=== PATIENT | female | born 1965 | race Caucasian/White ===

== ENCOUNTER 2017-03-19 12:39 | Emergency (ER) | payer BC ==
[2017-03-19] MEDS ORDERED: ASPIRIN TABLET 325 MG TAB ONE (12:43)
[2017-03-19] MEDS ORDERED: NITROGLYCERIN 0.4 MG 25 EA TAB SL ONE ×2 (12:43→13:48)
--- NOTE | 2017-03-19 12:43 | ED.PDOC ---
History of Present Illness - General Chief Complaint: Chest Pain/UT Stated Complaint: chest pain Time Seen by Provider: 03/19/17 12:42 Source: patient - History of Present Illness Initial Comments: Anupama Sung 51 y/o female stated that while at work had sudden onset of dull substernal ache radiating to her back felt hot and sweaty and SOB felt also nauseated.Symptoms started at about 1130 h today Timing/Duration: 1-3 hours Severity/Quality: dull Location: substernal Chest Pain Radiation: back Activities at Onset: other - at work Prior Chest Pain/Cardiac Workup: no prior chest pain Improving Factors: nothing Worsening Factors: nothing Nitro Today/Relief: no nitro taken today Aspirin Treatment Today: no aspirin today Associated Symptoms: nausea/vomiting, shortness of breath Allergies/Adverse Reactions: Allergies NSAIDs Allergy (Verified 03/19/17 12:47) Home Medications: Ambulatory Orders NK [NK] 03/19/17 Review of Systems - Review of Systems Constitutional: States: no symptoms reported EENTM: States: no symptoms reported Respiratory: States: no symptoms reported Cardiology: States: see HPI Gastrointestinal/Abdominal: States: no symptoms reported Genitourinary: States: no symptoms reported Musculoskeletal: States: no symptoms reported Past Medical History (General) - Patient Medical History Hx Seizures: No Hx Asthma: No Hx of COPD: No Hx Cardiac Disorders: No Hx Congestive Heart Failure: No Hx Hypertension: No Surgical History: other - ulnar nerve transposition - Social History Hx Tobacco Use: No Hx Chewing Tobacco Use: No Hx Alcohol Use: No Hx Substance Use: No Hx Physical Abuse: No Hx Emotional Abuse: No Hx Suspected Abuse: No - Activities of Daily Living Patient Lives Alone: No - family - Female History Patient is a Female of Child Bearing Age (10 -59 yrs old): Yes Hx Last Menstrual Period: 03/04/17 Patient : No Family Medical History - Family History Mother Living Status: Still Living Hx Family Hypertension: Yes - mom Hx Family Cancer: Yes - DAD Physical Exam - Physical Exam General Appearance: Alert, Anxious, No apparent distress Eyes, Ears, Nose, Throat Exam: PERRL/EOMI, normal ENT inspection, TMs normal Neck: non-tender, full range of motion, supple Respiratory: lungs clear, normal breath sounds, no respiratory distress Cardiovascular/Chest: normal peripheral pulses, regular rate, rhythm, no edema, no murmur Peripheral Pulses: radial,right: 1+, radial,left: 1+ Gastrointestinal/Abdominal: normal bowel sounds, non tender, soft Extremity: normal range of motion, non-tender, no pedal edema, no calf tenderness Neurologic: no motor/sensory deficits, alert, normal mood/affect, oriented x 3 Skin Exam: normal color, warm/dry Lymphatic: no adenopathy Progress - Progress Progress: 03/19/17 13:53 Vital Signs - 8 hr 03/19/17 03/19/17 03/19/17 12:47 12:55 13:09 Temperature 97.6 F Pulse Rate [ 89 84 85 Left Radial] Respiratory 18 18 18 Rate Blood Pressure 179/101 182/86 131/81 [Left Arm] O2 Sat by Pulse 100 97 97 Oximetry 03/19/17 13:39 Temperature Pulse Rate [ 82 Left Radial] Respiratory 18 Rate Blood Pressure 148/90 [Left Arm] O2 Sat by Pulse 98 Oximetry - Results/Orders Results/Orders: Laboratory Tests 03/19/17 03/19/17 03/19/17 12:55 12:55 13:13 WBC 10.4 RBC 4.73 Hgb 14.3 Hct 42.0 MCV 88.9 MCH 30.1 MCHC 33.9 RDW 13.2 Plt Count 265 MPV 9.6 Absolute Neuts (auto) 5.40 Absolute Lymphs (auto) 3.80 H Absolute Monos (auto) 0.70 Absolute Eos (auto) 0.30 Absolute Basos (auto) 0.20 H Neutrophils % 52.2 Lymphocytes % 36.4 Monocytes % 6.7 Eosinophils % 2.5 Basophils % 2.2 H PT 11.0 INR 0.970 PTT (SP) 35.1 D-Dimer, Quantitative < 230 Sodium 135 Potassium 3.7 Chloride 103 Carbon Dioxide 24 Anion Gap 11.7 L BUN 15 Creatinine 0.63 BUN/Creatinine Ratio 23.8 H Random Glucose 96 Serum Osmolality 270.8 L Calcium 9.5 Magnesium 2.2 Total Bilirubin < 0.2 L Direct Bilirubin < 0.1 Indirect Bilirubin 0.1 L AST 34 ALT 28 Alkaline Phosphatase 86 Creatine Kinase 46 CK-MB (CK-2) 1.0 CK-MB (CK-2) % Not Reportable Troponin I < 0.02 B-Natriuretic Peptide < 5.0 Serum Total Protein 8.2 Albumin 4.2 Lipase 33 Urine Color Urine Appearance Urine pH Ur Specific [place] Urine Protein Urine Glucose (UA) Urine Ketones Urine Blood Urine Nitrite Urine Bilirubin Urine Urobilinogen Ur Leukocyte Esterase Urine RBC Urine WBC Ur Epithelial Cells Urine Bacteria Urine HCG, Qual 03/19/17 03/19/17 14:50 14:50 WBC RBC Hgb Hct MCV MCH MCHC RDW Plt Count MPV Absolute Neuts (auto) Absolute Lymphs (auto) Absolute Monos (auto) Absolute Eos (auto) Absolute Basos (auto) Neutrophils % Lymphocytes % Monocytes % Eosinophils % Basophils % PT INR PTT (SP) D-Dimer, Quantitative Sodium Potassium Chloride Carbon Dioxide Anion Gap BUN Creatinine BUN/Creatinine Ratio Random Glucose Serum Osmolality Calcium Magnesium Total Bilirubin Direct Bilirubin Indirect Bilirubin AST ALT Alkaline Phosphatase Creatine Kinase CK-MB (CK-2) CK-MB (CK-2) % Troponin I B-Natriuretic Peptide Serum Total Protein Albumin Lipase Urine Color Yellow Urine Appearance Clear Urine pH 6.0 Ur Specific [place] 1.015 Urine Protein Negative Urine Glucose (UA) Negative Urine Ketones Negative Urine Blood Negative Urine Nitrite Negative Urine Bilirubin Negative Urine Urobilinogen 0.2 Ur Leukocyte Esterase Negative Urine RBC 0 Urine WBC 0 Ur Epithelial Cells 0 Urine Bacteria 0 Urine HCG, Qual Negative Laboratory Tests 03/19/17 03/19/17 03/19/17 12:55 12:55 13:13 WBC 10.4 RBC 4.73 Hgb 14.3 Hct 42.0 MCV 88.9 MCH 30.1 MCHC 33.9 RDW 13.2 Plt Count 265 MPV 9.6 Absolute Neuts (auto) 5.40 Absolute Lymphs (auto) 3.80 H Absolute Monos (auto) 0.70 Absolute Eos (auto) 0.30 Absolute Basos (auto) 0.20 H Neutrophils % 52.2 Lymphocytes % 36.4 Monocytes % 6.7 Eosinophils % 2.5 Basophils % 2.2 H PT 11.0 INR 0.970 PTT (SP) 35.1 D-Dimer, Quantitative < 230 Sodium 135 Potassium 3.7 Chloride 103 Carbon Dioxide 24 Anion Gap 11.7 L BUN 15 Creatinine 0.63 BUN/Creatinine Ratio 23.8 H Random Glucose 96 Serum Osmolality 270.8 L Calcium 9.5 Magnesium 2.2 Total Bilirubin < 0.2 L Direct Bilirubin < 0.1 Indirect Bilirubin 0.1 L AST 34 ALT 28 Alkaline Phosphatase 86 Creatine Kinase 46 CK-MB (CK-2) 1.0 CK-MB (CK-2) % Not Reportable Troponin I < 0.02 B-Natriuretic Peptide < 5.0 Serum Total Protein 8.2 Albumin 4.2 Lipase 33 Urine Color Urine Appearance Urine pH Ur Specific [place] Urine Protein Urine Glucose (UA) Urine Ketones Urine Blood Urine Nitrite Urine Bilirubin Urine Urobilinogen Ur Leukocyte Esterase Urine RBC Urine WBC Ur Epithelial Cells Urine Bacteria Urine HCG, Qual Urine Opiates Screen Urine Barbiturates Ur Phencyclidine Scrn U Amphetamin/Meth Scrn U Benzodiazepines Scrn U Cocaine Metab Screen U Cannabinoids Screen 03/19/17 03/19/17 03/19/17 14:50 14:50 14:50 WBC RBC Hgb Hct MCV MCH MCHC RDW Plt Count MPV Absolute Neuts (auto) Absolute Lymphs (auto) Absolute Monos (auto) Absolute Eos (auto) Absolute Basos (auto) Neutrophils % Lymphocytes % Monocytes % Eosinophils % Basophils % PT INR PTT (SP) D-Dimer, Quantitative Sodium Potassium Chloride Carbon Dioxide Anion Gap BUN Creatinine BUN/Creatinine Ratio Random Glucose Serum Osmolality Calcium Magnesium Total Bilirubin Direct Bilirubin Indirect Bilirubin AST ALT Alkaline Phosphatase Creatine Kinase CK-MB (CK-2) CK-MB (CK-2) % Troponin I B-Natriuretic Peptide Serum Total Protein Albumin Lipase Urine Color Yellow Urine Appearance Clear Urine pH 6.0 Ur Specific [place] 1.015 Urine Protein Negative Urine Glucose (UA) Negative Urine Ketones Negative Urine Blood Negative Urine Nitrite Negative Urine Bilirubin Negative Urine Urobilinogen 0.2 Ur Leukocyte Esterase Negative Urine RBC 0 Urine WBC 0 Ur Epithelial Cells 0 Urine Bacteria 0 Urine HCG, Qual Negative Urine Opiates Screen Negative Urine Barbiturates Negative Ur Phencyclidine Scrn Negative U Amphetamin/Meth Scrn Negative U Benzodiazepines Scrn Negative U Cocaine Metab Screen Negative U Cannabinoids Screen Negative - EKG/XRAY/CT EKG: Sinus, no ST T wave changes Comments: hear rate-84 XRAY: chest - no acute abnormality - Additional EKG/XRAY/Consults EKG #2: Sinus Comments: HR-74 Departure - Departure Clinical Impression: Chest pain Qualifiers: Chest pain type: unspecified Qualified Code(s): R07.9 - Chest pain, unspecified Time of Disposition: 16:01 Disposition: Discharge to Home or Self Care Condition: Good Instructions: DI for Chest Pain Referrals: TATI,CHRIS L IV, SOAP CHIPPER [Primary Care Provider] - 1-2 Weeks Home Medications: Ambulatory Orders NK [NK] 03/19/17 Additional Instructions: RETURN TO ER NEEDED;Follow up with your primary md call for appointment today
[2017-03-19] MEDS ORDERED: ASPIRIN (CHEWABLE) 81 MG TAB PO ONE (12:44)
--- NOTE | 2017-03-19 13:06 | RAD ---
EXAM DESCRIPTION: Chest,1 View CLINICAL HISTORY: 51 years Female, pain COMPARISON: None. IMPRESSION: Heart size and pulmonary vascularity are within normal limits. There is no airspace consolidation, pleural effusion, or pneumothorax. No acute osseous abnormality. Electronically signed by: Marino Flynn MD 03/19/2017 1:05 PM CDT
[2017-03-19 13:07] VITALS: TEMP 97.6
[2017-03-19] MEDS ORDERED: SUCRALFATE 1 GM/10 ML 1 GM UD PO ONE (13:13)
[2017-03-19] MEDS ORDERED: LIDOCAINE VIS-MYLANTA 30 ML UD PO ONE (13:13)
[2017-03-19] MEDS ORDERED: CLOPIDOGREL 75 MG TAB PO ONE (13:13)
[2017-03-19] MEDS ORDERED: ONDANSETRON INJ 4 MG/2 ML VIAL IV ONE (13:15)
[2017-03-19] MEDS ORDERED: SODIUM CHLORIDE 0.9% 1000ML 1,000 ML IVS ONE (13:16)
[2017-03-19] MEDS ORDERED: ACETAMINOPHEN 500 MG TAB PO ONE ×2 (13:52→14:18)
[2017-03-19 17:15] VITALS: BP 124/72; O2SAT 100
== END 2017-03-19 16:20 | disposition home or self-care (01) ==
LOC: ER 12:39
DX: R07.9 Chest pain, unspecified (principal); Z88.6 Allergy status to analgesic agent
CPT/HCPCS: 36415; 71010; 80048; 80076; 80307; 81001; 81025; 82550; 82553; 83690; 83880; 84484; 85025; 85379; 85610; 85730; 93005; J2405; J7030

== ENCOUNTER 2017-03-20 14:47 | Emergency (ER) | payer BC ==
[2017-03-20] MEDS ORDERED: HYDROmorphone HCL INJ 2 MG/ML VIAL IV ONE ×2 (15:32→17:50)
[2017-03-20] MEDS ORDERED: ONDANSETRON ODT 8 MG TAB SL ONE (15:32)
--- NOTE | 2017-03-20 17:36 | CT ---
EXAM DESCRIPTION: Abdomen/Pelvis w/Contrast CLINICAL HISTORY: 51 years Female ruq pain severe 24 hours, n/v COMPARISON: None. TECHNIQUE: Contiguous axial images obtained through the abdomen and pelvis following IV contrast. Reformatted images obtained. This exam was performed according to our department optimization program which includes automated exposure control, adjustment of the mA and/or kv according to patient size and/or use of iterative reconstruction technique. FINDINGS: The liver appears unremarkable. The spleen and pancreas appear unremarkable. No adrenal masses. The kidneys appear unremarkable. No hydronephrosis. The gallbladder is present. There appears to be mild stranding and indistinctness of the wall with some fluid along the gallbladder fossa. Findings may reflect cholecystitis. There also appears to be mild extrahepatic biliary ductal dilatation with the common duct measuring 7 to 8 mm in the val. Recommend correlation with ultrasound. No aneurysmal dilatation of the aorta. No bowel obstruction. The appendix is unremarkable. Small amount of free fluid is present in the pelvis. There is a partially collapsed right ovarian cyst measuring 2.3 cm. This is almost certainly benign in a patient of this age and does not require follow-up. IMPRESSION: Findings concerning for cholecystitis. Recommend correlation with ultrasound Mild biliary ductal dilatation without obvious obstructing lesion Small amount of fluid in the pelvis Additional changes as above Electronically signed by: Destiney Pinto 03/20/2017 5:35 PM CDT
[2017-03-20] MEDS ORDERED: cefOXitin SODIUM 2 GM in SODIUM CHL 0.9% 50ML MIN-BAG+ 50 ML IVPB ONE (18:09)
[2017-03-20] MEDS ORDERED: SODIUM CHL 0.9% 50ML MIN-BAG+ 50 ML IVPB ONE (18:13)
[2017-03-20] MEDS ORDERED: cefOXitin SODIUM 2 GM INJ IVPB ONE (18:13)
[2017-03-20] MEDS ORDERED: PROMETHAZINE HCL INJ 25 MG in SODIUM CHLORIDE 0.9% 50ML 50 ML IVPB ONE (18:14)
--- NOTE | 2017-03-20 18:20 | ED.PDOC ---
History of Present Illness - General Chief Complaint: Abdominal Pain Stated Complaint: abdominal pain Time Seen by Provider: 03/20/17 15:31 Source: patient, family Exam Limitations: no limitations - History of Present Illness Initial Comments: the patient is a 51-year-old female presenting to the emergency room secondary toprogression of abdominal pain. She was actually seen here in the emergency room last night with more epigastric substernal pain. She received the appropriate workup for that and was released with medications to target her stomach. Pain has progressed today and moved to the right upper quadrant with more associated nausea and vomiting. She returned secondary to progression of pain. Liver function tests were completely normal yesterday. Timing/Duration: 24 hours Severity: severe Improving Factors: immobilization Worsening Factors: eating, movement Associated Symptoms: diaphoresis, malaise, nausea/vomiting Allergies/Adverse Reactions: Allergies NSAIDs Allergy (Verified 03/19/17 12:47) Home Medications: Ambulatory Orders NK [NK] 03/19/17 Review of Systems - Review of Systems Constitutional: States: malaise EENTM: States: no symptoms reported Respiratory: States: no symptoms reported Cardiology: States: no symptoms reported Gastrointestinal/Abdominal: States: abdominal pain, nausea, vomiting Genitourinary: States: no symptoms reported Musculoskeletal: States: no symptoms reported, back pain - on the right Skin: States: no symptoms reported Neurological: States: no symptoms reported Endocrine: States: no symptoms reported Hematologic/Lymphatic: States: no symptoms reported Past Medical History (General) - Patient Medical History Hx Seizures: No Hx Stroke: No Hx Asthma: No Hx of COPD: No Hx Cardiac Disorders: No Hx Congestive Heart Failure: No Hx Hypertension: No Hx Diabetes: No Hx MRSA: No Surgical History: other - Vaccination History Hx Influenza Vaccination: Yes - 2016 Hx Pneumococcal Vaccination: No - Social History Hx Tobacco Use: No Hx Chewing Tobacco Use: No Hx Alcohol Use: No Hx Substance Use: No Hx Physical Abuse: No Hx Emotional Abuse: No Hx Suspected Abuse: No - Female History Hx Last Menstrual Period: 03/04/17 Patient : No Family Medical History - Family History Mother Living Status: Still Living Hx Family Hypertension: Yes - mom Hx Family Cancer: Yes - DAD Physical Exam - Physical Exam General Appearance: Alert, Obvious distress Eye Exam: bilateral normal Ears, Nose, Throat: hearing grossly normal, normal ENT inspection, normal pharynx Neck: full range of motion, supple Respiratory: chest non-tender, lungs clear, normal breath sounds, no respiratory distress, no accessory muscle use Cardiovascular/Chest: normal peripheral pulses, regular rate, rhythm, no edema Peripheral Pulses: radial,right: 2+, radial,left: 2+, dorsalis pedis,right: 2+, dorsalis pedis,left: 2+ Gastrointestinal/Abdominal: soft, other - right upper quadrant tenderness to palpation with guarding. There is also some rebound in that area. Rectal Exam: deferred Back Exam: normal inspection, CVA tenderness (R) Extremity: normal range of motion, non-tender, normal inspection, no pedal edema , normal capillary refill Neurologic: account coordinator II-XII nml as tested, alert, normal mood/affect, oriented x 3 Skin Exam: normal color Comments: Vital Signs - 24 hr 03/20/17 03/20/17 03/20/17 14:52 16:06 16:19 Temperature 98.7 F Pulse Rate [RAC 83 74 75 ] Respiratory 20 18 16 Rate Blood Pressure 152/87 154/80 [LEFT BRACHIAL] O2 Sat by Pulse 99 98 100 Oximetry 03/20/17 17:47 Temperature Pulse Rate [RAC 81 ] Respiratory 20 Rate Blood Pressure 171/120 [LEFT BRACHIAL] O2 Sat by Pulse 97 Oximetry Progress - Progress Progress: 03/20/17 18:21 the patient is a 51-year-old female presenting to the emergency room secondary to progression of abdominal pain. She appears to have acute cholecystitis. There is a question of whether she has a common bile duct stone as the cause. The patient will be sent to [facility] where she can have the ultrasound done as this is not available here [facility]. The patient is receiving a dose of a cephalosporin prior to transfer. She has also received a dose of pain medication and nausea medication. The patient will be going by private vehicle as she is stable for that at this time, as there is a significant delay for ambulance transfer currently due to lack of availability. Her IV will be wrapped up for use at the receiving facility if they agree to its use upon arrival. - Results/Orders Results/Orders: Laboratory Tests 03/20/17 03/20/17 03/20/17 15:12 15:50 15:50 WBC 9.9 RBC 4.55 Hgb 13.7 Hct 40.8 MCV 89.8 MCH 30.2 MCHC 33.6 RDW 13.4 Plt Count 266 MPV 9.9 Absolute Neuts (auto) 7.10 H Absolute Lymphs (auto) 1.80 Absolute Monos (auto) 0.70 Absolute Eos (auto) 0.20 Absolute Basos (auto) 0.10 Neutrophils % 71.7 Lymphocytes % 18.0 L Monocytes % 6.7 Eosinophils % 2.4 Basophils % 1.2 Sodium 135 Potassium 3.6 Chloride 103 Carbon Dioxide 24 Anion Gap 11.6 L BUN 10 Creatinine 0.72 BUN/Creatinine Ratio 13.9 Random Glucose 105 Serum Osmolality 269.5 L Lactic Acid Calcium 9.1 Total Bilirubin 0.8 AST 360 H D ALT 410 H D Alkaline Phosphatase 158 H D Serum Total Protein 8.1 Albumin 4.3 Globulin 3.8 H Albumin/Globulin Ratio 1.1 Amylase 59 Lipase 35 Urine Color Yellow Urine Appearance Clear Urine pH 6.0 Ur Specific [place] 1.015 Urine Protein Negative Urine Glucose (UA) Negative Urine Ketones Negative Urine Blood Trace-intact H Urine Nitrite Negative Urine Bilirubin Negative Urine Urobilinogen 0.2 Ur Leukocyte Esterase Negative Urine RBC 0 Urine WBC 0 Ur Epithelial Cells 3-5 Urine Bacteria 0 03/20/17 15:50 WBC RBC Hgb Hct MCV MCH MCHC RDW Plt Count MPV Absolute Neuts (auto) Absolute Lymphs (auto) Absolute Monos (auto) Absolute Eos (auto) Absolute Basos (auto) Neutrophils % Lymphocytes % Monocytes % Eosinophils % Basophils % Sodium Potassium Chloride Carbon Dioxide Anion Gap BUN Creatinine BUN/Creatinine Ratio Random Glucose Serum Osmolality Lactic Acid 1.1 Calcium Total Bilirubin AST ALT Alkaline Phosphatase Serum Total Protein Albumin Globulin Albumin/Globulin Ratio Amylase Lipase Urine Color Urine Appearance Urine pH Ur Specific [place] Urine Protein Urine Glucose (UA) Urine Ketones Urine Blood Urine Nitrite Urine Bilirubin Urine Urobilinogen Ur Leukocyte Esterase Urine RBC Urine WBC Ur Epithelial Cells Urine Bacteria CT scan of the abdomen and pelvis shows mild stranding surrounding the walled gallbladder with some surrounding fluid as well. Mild extrahepatic ductal dilation with common bile duct of approximately 8 mm consistent with cholecystitis. No definite obstructing stone seen. Recommended ultrasound. Departure - Departure Clinical Impression: Cholecystitis Disposition: Transfer to Hospital Condition: Fair Referrals: CHRIS DUFFY IV, CLINICAL RESEARCHER [Primary Care Provider] - 1-2 Weeks Home Medications: Ambulatory Orders NK [NK] 03/19/17 Transfer to Outside Facility - Transfer Information Accepting Provider:: alfredo hoffman Accepting Facility: [facility] Reason for Transfer: specialized care not available
[2017-03-20] MEDS ORDERED: PROMETHAZINE HCL INJ 25 MG/ML VIAL ONE ×2 (18:22→18:59)
[2017-03-20] MEDS ORDERED: SODIUM CHLORIDE 0.9% 50ML 0 ML ONE (18:23)
[2017-03-20] MEDS ORDERED: SODIUM CHLORIDE 0.9% 50ML 50 ML ONE (18:59)
[2017-03-20 19:58] VITALS: O2SAT 98
[2017-03-20 20:05] VITALS: BP 111/65; TEMP 98.1
== END 2017-03-20 19:40 | disposition short-term general hospital (02) ==
LOC: ER 14:47
DX: K81.9 Cholecystitis, unspecified (principal)
CPT/HCPCS: 36415; 74177; 80053; 81001; 82150; 83605; 83690; 85025; A4216; J0694; J1170; J2550; J7050